=== PATIENT | male | born 1940 | race Caucasian/White ===

== ENCOUNTER 2016-10-03 10:07 | Inpatient (IN) | payer MEDICARE, MEDICAID ==
[~2016-10-03] VITALS: Ht 182.9 cm; Wt 108.8 kg
[2016-10-03] VITALS (16 sets, daily range): BP systolic 101–191; BP diastolic 55–106; PULSE 68–154; RESP 16–60; TEMP 97.7–98.8; O2SAT 94–100
[2016-10-03] MEDS ORDERED: LORazepam 2 MG/ML VIAL ONE (10:24)
[2016-10-03] MEDS ORDERED: RESP: ALBUTEROL 2.5 MG/IPRATROPIUM 0.5 MG NEB (SCH) ONE (10:27)
[2016-10-03] MEDS ORDERED: LORazepam 2 MG/ML VIAL IV PUSH ONE ×2 (10:30)
[2016-10-03] MEDS: RESP: ALBUTEROL 2.5 MG/IPRATROPIUM 0.5 MG NEB (SCH) INH ×5 (10:30→20:24)
[2016-10-03] MEDS ORDERED: methylPREDNISolone SOD SUCC 125 MG/2 ML VIAL IVP ONE (10:30)
[2016-10-03] MEDS: MAGNESIUM SULFATE 1 GM PREMIX 100 ML IV SCH ×2 (10:34→10:57)
--- NOTE | 2016-10-03 10:35 | RADRPT ---
EXAM DATE/TIME: 10/03/2016 10:27 [facility] COMPARISON: No previous studies available for comparison. INDICATIONS : Shortness of breath. MEDICAL HISTORY : None. SURGICAL HISTORY : None. ENCOUNTER: Initial ACUITY: 1 day PAIN SCORE: Non-responsive. LOCATION: Bilateral chest FINDINGS: 2 AP views of the chest demonstrate a normal-sized cardiac silhouette. There is mild lucency in the u pper lung zones bilaterally. No effusion, consolidation, or pneumothorax is appreciated. Bones and so ft tissues demonstrate no acute finding. CONCLUSION: Background lung changes are suggestive of emphysema. Otherwise, no acute cardiopulmonary abnormality is identified. Sriram Alex MD on October 03, 2016 at 10:33 Board Certified Radiologist. This report was verified electronically.
[2016-10-03] MEDS ORDERED: ETOMIDATE 20 MG/10 ML VIAL ONE (10:42)
[2016-10-03] MEDS ORDERED: SUCCINYLCHOLINE CHLORIDE 200 MG/10 ML VIAL ONE (10:42)
[2016-10-03] MEDS ORDERED: PROPOFOL 1000 MG/100 ML INJ 100 ML ONE (10:42)
[2016-10-03 10:48] LABS: BASOPHIL % 0.6 % (0.0-2.0); EOSINOPHIL # 0.1 TH/MM3 (0-0.4); EOSINOPHIL % 2.2 % (0.0-4.0); HEMATOCRIT 47.5 % (39.0-51.0); HEMO FLAGS DIFF FINAL; LYMPH % 37.1 % (9.0-44.0); LYMPHOCYTE # 1.8 TH/MM3 (1.0-4.8); MEAN CELL VOLUME 92.4 FL (80.0-100.0); MEAN CORPUSCULAR HEMOGLOBIN 31.4 PG (27.0-34.0); MONO % 0.7 % (0.0-8.0); NEUT % 59.4 % (16.0-70.0); PLATELET COUNT 226 TH/MM3 (150-450); RED BLOOD COUNT 5.14 MIL/MM3 (4.50-5.90); RED CELL DISTRIBUTION WIDTH 13.9 % (11.6-17.2)
[2016-10-03 10:58] LABS: APTT (PATIENT) 23.6 SEC (24.3-30.1); PROTHROMBIN TIME - PATIENT 10.7 SEC (9.8-11.6)
[2016-10-03 11:10] LABS: ANION GAP 17 MEQ/L (5-15); AST (GOT) 20 U/L (15-37); BICARBONATE 18.7 MEQ/L (21.0-32.0); BLOOD UREA NITROGEN 15 MG/DL (7-18); CHLORIDE 106 MEQ/L (98-107); GLOMERULAR FILTRATION RATE 53 ML/MIN (>89); MAGNESIUM 2.2 MG/DL (1.5-2.5); POTASSIUM 3.6 MEQ/L (3.5-5.1); SODIUM (NA) 142 MEQ/L (136-145)
[2016-10-03] MEDS: PROPOFOL 1000 MG/100 ML INJ 100 ML IV SCH ×4 (11:10→20:21)
[2016-10-03 11:15] LABS: ALKALINE PHOSPHATASE 103 U/L (45-117); ALT (GPT) 28 U/L (12-78); TOTAL BILIRUBIN ADULT 0.9 MG/DL (0.2-1.0)
[2016-10-03] MEDS ORDERED: ETOMIDATE 20 MG/10 ML VIAL IVP ONE (11:15)
[2016-10-03] MEDS ORDERED: SUCCINYLCHOLINE CHLORIDE 200 MG/10 ML VIAL IVP ONE (11:15)
[2016-10-03] MEDS ORDERED: SODIUM CHLOR 0.9% 1000 ML INJ 1,000 ML IV ONE ×2 (11:15)
--- NOTE | 2016-10-03 11:23 | RADRPT ---
EXAM DATE/TIME: 10/03/2016 11:15 [facility] COMPARISON: CHEST SINGLE AP, October 03, 2016, 10:27. INDICATIONS : Status post intubation. MEDICAL HISTORY : None. SURGICAL HISTORY : None. ENCOUNTER: Subsequent ACUITY: 1 day PAIN SCORE: Non-responsive. LOCATION: chest FINDINGS: Single AP view of the chest does not fully visualized the lung bases. Endotracheal tube is now presen t in the distal tip is approximately 9.2 cm from the zheng. There may be a nasogastric tube also pre sent but distal aspect is not visualized. No pneumothorax is identified. There is suspected atelectas is versus consolidation at the partially visualized lung bases. CONCLUSION: 1. Endotracheal tube tip measures approximately 9.2 cm from the zheng. 2. The lung bases are not fully visualized but there is questionable atelectasis versus consolidation . Sriram Alex MD on October 03, 2016 at 11:20 Board Certified Radiologist. This report was verified electronically.
[2016-10-03 11:27] LABS: BLOOD GAS CARBOXYHEMOGLOBIN 1.8 % (0-4); BLOOD GAS HCO3 19 mmol/L (22-26); BLOOD GAS METHEMOGLOBIN 2.3 % (0-2); BLOOD GAS O2 HGB SATURATION 96 % (90-100); BLOOD GAS OXYGEN CONTENT 18.9 Vol % (12.0-20.0); BLOOD GAS PCO2 36 mmHg (38-42); BLOOD GAS PO2 344 mmHG (61-120); BLOOD GAS TOTAL HGB 13.5 G/DL (12.0-16.0); CRITICAL VALUE NO; FIO2 100 %; OXYGEN DEVICE VENTILATOR; TEMP CORR TO 98.6; VENT SETTINGS AC/16/500/+5
[2016-10-03 11:28] LABS: DRAW SITE RT RADIAL; NUMBER OF ARTERIAL PUNCTURES 1; STAT NO; ULNAR PULSE PRESENT
[2016-10-03 11:29] LABS: BLOOD GAS BASE EXCESS -11.1 mmol/L (-2-2); BLOOD GAS CARBOXYHEMOGLOBIN 1.6 % (0-4); BLOOD GAS HCO3 14 mmol/L (22-26); BLOOD GAS METHEMOGLOBIN 2.2 % (0-2); BLOOD GAS O2 HGB SATURATION 95 % (90-100); BLOOD GAS OXYGEN CONTENT 22.4 Vol % (12.0-20.0); BLOOD GAS PCO2 31 mmHg (38-42); BLOOD GAS PO2 183 mmHG (61-120); BLOOD GAS TOTAL HGB 16.6 G/DL (12.0-16.0); CRITICAL VALUE YES; DRAW SITE RT RADIAL; FIO2 60 %; NUMBER OF ARTERIAL PUNCTURES 1; OXYGEN DEVICE BiPAP; STAT YES; TEMP CORR TO 98.6; ULNAR PULSE PRESENT; VENT SETTINGS 8PS/5PEEP
--- NOTE | 2016-10-03 11:58 | PD ---
HPI Chief Complaint: Respiratory Distress Time Seen by Provider: 10:13 Travel History International Travel<30 days: No Contact w/Intl Traveler<30days: No Traveled to known affect area: No History of Present Illness HPI This is a 76-year-old man who presents to the emergency department brought in by his roommate for the abrupt onset of severe trouble breathing starting just 30 minutes prior to arrival. Patient has a history of COPD. He otherwise had been feeling generally well and healthy. Both he and his roommate deny any recent prodrome of URI symptoms. He uses inhalers for COPD. No home oxygen. No history of heart problems. No other complaints. History is somewhat limited due to patient's for found shortness of breath. History Past Medical History Narrative Medical COPD Hypertension Tetanus Vaccination: > 5 Years Influenza Vaccination: No Past Surgical History Surgical History: No Previous Surgery Social History Alcohol Use: No Tobacco Use: No Allergies-Medications (Allergen,Severity, Reaction): Coded Allergies: No Known Allergies (Verified , 10/03/16) Reported Meds & Prescriptions Reported Meds & Active Scripts Active Active Prescriptions or Reported Medications Unobtainable Review of Systems Except as stated in HPI: all other systems reviewed are Neg Physical Exam Narrative GENERAL: Well-appearing 76-year-old man, marked respiratory distress. Able to speak in short sentences. Marked tachypnea. SKIN: Warm and dry. NECK: Trachea midline. No JVD. CARDIOVASCULAR: Regular rate and rhythm. No murmur appreciated. RESPIRATORY: Marked tachypnea, diminished breath sounds with barely audible air movement throughout the posterior lung howard. No Rales. Some very tight wheezing. No rhonchi. GASTROINTESTINAL: Abdomen soft, non-tender, nondistended. Hepatic and splenic margins not palpable. MUSCULOSKELETAL: No obvious deformities. No edema. NEUROLOGICAL: Awake and alert. No obvious cranial nerve deficits. Motor grossly within normal limits. Normal speech. PSYCHIATRIC: Appropriate mood and affect; insight and judgment normal. Data Data Last Documented VS Vital Signs Date Time Temp Pulse Resp B/P Pulse Ox O2 Delivery O2 Flow Rate FiO2 10/03/16 11:15 100 100 10/03/16 10:59 122 50 179/82 Ventilator 10/03/16 10:10 97.7 Orders Chest, Single Ap (10/03/16 ) Electrocardiogram (10/03/16 10:19) Complete Blood Count With Diff (10/03/16 10:19) Comprehensive Metabolic Panel (10/03/16 10:19) Prothrombin Time / Inr (Pt) (10/03/16 10:19) Act Partial Throm Time (Ptt) (10/03/16 10:19) Lactic Acid Sepsis Protocol (10/03/16 10:19) Magnesium (Mg) (10/03/16 10:19) Lipase (10/03/16 10:19) Troponin I (10/03/16 10:19) Urinalysis - C+S If Indicated (10/03/16 10:19) Influenzae A/B Antigen (10/03/16 10:19) Blood Culture (10/03/16 10:19) Arterial Blood Gas (Abg) (10/03/16 10:19) Blood Glucose (10/03/16 10:19) Ecg Monitoring (10/03/16 10:19) Iv Access Insert/Monitor (10/03/16 10:19) Oximetry (10/03/16 10:19) Oxygen Administration (10/03/16 10:19) Resp Bipap / Cpap Non Invas Vt (10/03/16 ) Lorazepam Inj (Ativan Inj) (10/03/16 10:30) Lorazepam Inj (Ativan Inj) (10/03/16 10:24) Methylprednisolone So Succ Inj (Solumedr (10/03/16 10:30) Albuterol-Ipratropium Neb (Duoneb Neb) (10/03/16 10:30) Magnesium Sulfate 1 Gm Premix (Magnesium (10/03/16 10:30) Albuterol-Ipratropium Neb (Duoneb Neb) (10/03/16 10:27) Lorazepam Inj (Ativan Inj) (10/03/16 10:30) Propofol 1000 Mg/100 Ml Inj (Diprivan 10 (10/03/16 10:42) Etomidate Inj (Amidate Inj) (10/03/16 10:42) Succinylcholine Inj (Quelicin Inj) (10/03/16 10:42) Chest, Single Ap (10/03/16 11:03) Arterial Blood Gas (Abg) (10/03/16 11:03) Ng Gastric Tube Insert/Monitor (10/03/16 11:03) Urinary Catheter Insert/Apply (10/03/16 11:03) Etomidate Inj (Amidate Inj) (10/03/16 11:15) Succinylcholine Inj (Quelicin Inj) (10/03/16 11:15) Sodium Chloride 0.9% Flush (Ns Flush) (10/03/16 11:15) Restraints Non-Violent ADRIAN.Q3H (10/03/16 11:03) Propofol 1000 Mg/100 Ml Inj (Diprivan 10 (10/03/16 11:15) ^ Infusion (10/03/16 11:03) RASS (10/03/16 11:03) Neurological Rass Scale ADRIAN.Q2H (10/03/16 11:03) Sodium Chlor 0.9% 1000 Ml Inj (Ns 1000 M (10/03/16 11:15) Sodium Chlor 0.9% 1000 Ml Inj (Ns 1000 M (10/03/16 11:15) Ct Pulmonary Angiogram (10/03/16 ) Vancomycin Inj (Vancomycin Inj) (10/03/16 12:00) Cefepime Inj (Maxipime Inj) (10/03/16 12:00) Ct Abd/Pel W Iv Contrast(Rout) (10/03/16 ) Admit Order (Ed Use Only) (10/03/16 ) Labs Laboratory Tests Test 10/03/16 10/03/16 10/03/16 10/03/16 10:25 10:29 11:18 12:10 White Blood Count 5.0 TH/MM3 Red Blood Count 5.14 MIL/MM3 Hemoglobin 16.1 GM/DL Hematocrit 47.5 % Mean Corpuscular Volume 92.4 FL Mean Corpuscular Hemoglobin 31.4 PG Mean Corpuscular Hemoglobin 34.0 % Concent Red Cell Distribution Width 13.9 % Platelet Count 226 TH/MM3 Mean Platelet Volume 7.5 FL Neutrophils (%) (Auto) 59.4 % Lymphocytes (%) (Auto) 37.1 % Monocytes (%) (Auto) 0.7 % Eosinophils (%) (Auto) 2.2 % Basophils (%) (Auto) 0.6 % Neutrophils # (Auto) 3.0 TH/MM3 Lymphocytes # (Auto) 1.8 TH/MM3 Monocytes # (Auto) 0.0 TH/MM3 Eosinophils # (Auto) 0.1 TH/MM3 Basophils # (Auto) 0.0 TH/MM3 CBC Comment DIFF FINAL Differential Comment Prothrombin Time 10.7 SEC Prothromb Time International 1.0 RATIO Ratio Activated Partial 23.6 SEC Thromboplast Time Sodium Level 142 MEQ/L Potassium Level 3.6 MEQ/L Chloride Level 106 MEQ/L Carbon Dioxide Level 18.7 MEQ/L Anion Gap 17 MEQ/L Blood Urea Nitrogen 15 MG/DL Creatinine 1.32 MG/DL Estimat Glomerular Filtration 53 ML/MIN Rate Random Glucose 155 MG/DL Lactic Acid Level 13.5 mmol/L 2.7 mmol/L Calcium Level 9.2 MG/DL Magnesium Level 2.2 MG/DL Total Bilirubin 0.9 MG/DL Aspartate Amino Transf 20 U/L (AST/SGOT) Alanine Aminotransferase 28 U/L (ALT/SGPT) Alkaline Phosphatase 103 U/L Troponin I LESS THAN 0.02 NG/ML Total Protein 8.2 GM/DL Albumin 4.2 GM/DL Lipase 151 U/L Blood Gas Puncture Site RT RADIAL RT RADIAL Blood Gas Patient Temperature 98.6 98.6 Blood Gas HCO3 14 mmol/L 19 mmol/L Blood Gas Base Excess -11.1 mmol/L -6.0 mmol/L Blood Gas Oxygen Saturation 95 % 96 % Arterial Blood pH 7.29 7.34 Arterial Blood Partial 31 mmHg 36 mmHg Pressure CO2 Arterial Blood Partial 183 mmHG 344 mmHG Pressure O2 Arterial Blood Oxygen Content 22.4 Vol % 18.9 Vol % Arterial Blood 1.6 % 1.8 % Carboxyhemoglobin Arterial Blood Methemoglobin 2.2 % 2.3 % Blood Gas Hemoglobin 16.6 G/DL 13.5 G/DL Oxygen Delivery Device BiPAP VENTILATOR Blood Gas Ventilator Setting 8PS/5PEEP AC/16/500/+5 Blood Gas Inspired Oxygen 60 % 100 % [facility] Medical Decision Making Medical Screen Exam Complete: Yes Emergency Medical Condition: Yes Interpretation(s) My review of EKG: Sinus tachycardia rate of 111, normal axis, normal intervals, lateral ST depression suggest lateral ischemia. LABS: CBC is unremarkable. CMP remarkable for mildly elevated creatinine. Anion gap 17. Bicarbonate 18.7 Lactate 13.5 Troponin negative Lipase normal Coags unremarkable Initial ABG on BiPAP 7.29/31/183/14, base excess -11 Repeat ABG postintubation 7.34/36/344/19, base excess -6 Chest x-ray: COPD changes. No infiltrate or pulmonary edema. Repeat chest x- ray after intubation shows ET tube was 9.2 cm from the zheng. Advanced [address] pulmonary angiogram: No PE. Severe emphysema. CT abdomen and pelvis: No acute finding is identified. Differential Diagnosis COPD exacerbation, pulmonary edema, A. fib, sepsis, respiratory failure, other Narrative Course Medical decision making This 76-year-old male presents emergency department in marked respiratory distress. He was immediately placed on BiPAP. Labs are drawn and chest x-ray was obtained. Chest x-ray did not show any pneumothorax or/pulmonary edema. He was extremely tight. At this point consideration for really COPD exacerbation, severe sepsis of the symptoms are very abrupt in onset, or PE. ABG was performed which showed metabolic acidosis. I think this is likely due to his marked work of breathing. Patient was still breathing 30-40 times a minute, with marked increase in work of breathing despite BiPAP. Decision was made to intubate patient which was accomplished uneventfully. He was much more comfortable afterwards. Vital signs started to normalize. Repeat ABG is improved. This is likely severe COPD exacerbation. Awaiting CT to rule out PE. Given the acidosis tachypnea tachycardia ball empirically cover with antibiotics pending further workup. Critical Care Narrative Aggregate critical care time was 40 minutes. Time to perform other separately billable procedures was not included in the critical care time. My time did not include minutes spent treating any other patients simultaneously or on activities that did not directly contribute to the patient's treatment. The services I provided to this patient were to treat and/or prevent clinically significant deterioration that could result in: , respiratory failure, decompensation, increased morbidity. I provided critical care services requiring my management, as noted below: Chart data review, documentation time, medication orders and management, vital sign assessments/reviewing monitor data, ordering and reviewing lab tests, ordering and interpreting/reviewing x-rays and diagnostic studies, care of the patient and discussion of the patient with the admitting physicians. Procedures Procedure Narrative After the risks and benefits were discussed the following procedure was performed: INTUBATION: The patient was put in optimal position for the procedure. Rapid sequence intubation was initiated by me using 20 milligrams of etomidate IV and 100 milligrams of succinylcholine IV. The patient was intubated with a 8.0 cuffed endotracheal tube. Tube placement was confirmed by visualization of the tube and balloon passing through the cords, capnometry and subsequent chest x- ray. Breath sounds were equal and well aerated bilaterally postintubation. No breath sounds over stomach. Patient tolerated procedure well. Diagnosis Primary Impression: Acute respiratory failure with hypoxia Additional Impression: Shock Scripts Unable to Obtain Active Prescriptions or Reported Meds Lenard Wood MD Oct 03, 2016 11:58
[2016-10-03] MEDS ORDERED: VANCOMYCIN INJ 1,000 MG in SODIUM CHLOR 0.9% 250 ML INJ 250 ML IV ONE (12:00)
[2016-10-03] MEDS ORDERED: CEFEPIME INJ 2,000 MG in SODIUM CHLORIDE 0.9% INJ 100 ML IV ONE (12:00)
[2016-10-03 12:40] LABS: LACTIC ACID GHOST NOT REPORTABLE
[2016-10-03] MEDS ORDERED: GLUCAGON 1 MG/ML VIAL OTHER PRN (12:45)
[2016-10-03] MEDS ORDERED: DEXTROSE 50% IN WATER 50 ML VIAL(D50) IV PUSH PRN (12:45)
[2016-10-03] MEDS ORDERED: CHLORHEXIDINE GLUCONATE 2 % 1 PACK (2 CLOTHS) TOP PRN (12:45)
[2016-10-03] MEDS: INSULIN NovoLIN REGULAR SUPPLEMENTAL SCALE SQ SCH ×2 (12:45→18:49)
[2016-10-03] MEDS ORDERED: MISCELLANEOUS NURSING INFORMATION XX SCH (12:45)
[2016-10-03] MEDS ORDERED: RESP: ALBUTEROL 2.5 MG/3 ML NEB (PRN) INH (12:45)
[2016-10-03 13:01] LABS: BACTERIA, URINE OCC /hpf; BLOOD, URINE NEG (NEG); GLUCOSE,URINE NEG (NEG); KETONE, URINE NEG (NEG); MUCUS URINE FEW /lpf (OCC); NITRITE,URINE POS (NEG); PH, URINE 5.5 (5.0-8.5); URINE COLOR YELLOW (YELLW/STRAW)
[2016-10-03 13:02] LABS: COMMENT (UR) CATH-CULTURE IND; CULTURE IF INDICATED CATH CULTURE IND
[2016-10-03] MEDS ORDERED: IOHEXOL 350 MG/ML 10 ML VIAL (for RAD DIAG) IV ONE (13:35)
--- NOTE | 2016-10-03 13:44 | RADRPT ---
EXAM DATE/TIME: 10/03/2016 13:18 [facility] COMPARISON: CHEST SINGLE AP, October 03, 2016, 11:15. INDICATIONS : Shortness of breath. IV CONTRAST: 75 cc Omnipaque 350 (iohexol) IV ; Cumulative dose for multiple exams. RADIATION DOSE: 11.29 CTDIvol (mGy) ; Combined studies - Thorax/Abdomen/Pelvis MEDICAL HISTORY : Chronic obstructive pulmonary disease. SURGICAL HISTORY : None. ENCOUNTER: Initial ACUITY: 1 day PAIN SCALE: 2/10 LOCATION: Bilateral chest TECHNIQUE: Volumetric scanning of the chest was performed using a pulmonary embolism protocol MIP images were re constructed. Using automated exposure control and adjustment of the mA and/or kV according to patien t size, radiation dose was kept as low as reasonably achievable to obtain optimal diagnostic quality images. FINDINGS: PULMONARY ARTERIES: No filling defects are seen in the pulmonary arteries through the segmental level. LUNGS: There is no consolidation or pneumothorax . Dependent atelectasis is present bilaterally. There is se johnny emphysema with large bulla at the right lung apex. PLEURAE: There is no pleural thickening or pleural effusion. MEDIASTINUM: Heart and great vessels demonstrate no acute finding. There is coronary artery calcification and mode rate atherosclerotic disease of the aorta. There is a lymph node in the right hilar region measuring 16 mm. MUSCULOSKELETAL: There is degenerative changes of the thoracic spine. MISCELLANEOUS: The visualized upper abdominal organs demonstrate no acute abnormality. Nasogastric tube extends into the stomach. Distal tip is not visualized. Endotracheal tube is present. CONCLUSION: 1. No PE is identified. 2. Severe emphysema with dependent atelectasis bilaterally. 3. There is a single mildly enlarged lymph node in the right infrahilar region measuring 16 mm. Sriram Alex MD on October 03, 2016 at 13:38 Board Certified Radiologist. This report was verified electronically.
--- NOTE | 2016-10-03 13:48 | RADRPT ---
EXAM DATE/TIME: 10/03/2016 13:18 [facility] COMPARISON: No previous studies available for comparison. INDICATIONS : Abdomen pain. IV CONTRAST: 75 cc Omnipaque 350 (iohexol) IV ; Cumulative dose for multiple exams. ORAL CONTRAST: No oral contrast ingested. RADIATION DOSE: 11.29 CTDIvol (mGy) ; Combined studies - Thorax/Abdomen/Pelvis MEDICAL HISTORY : Chronic obstructive pulmonary disease. SURGICAL HISTORY : None. ENCOUNTER: Initial ACUITY: 1 day PAIN SCALE: 4/10 LOCATION: Bilateral abdomen. TECHNIQUE: Volumetric scanning of the abdomen and pelvis was performed. Using automated exposure control and ad justment of the mA and/or kV according to patient size, radiation dose was kept as low as reasonably achievable to obtain optimal diagnostic quality images. FINDINGS: LOWER LUNGS: Please refer to chest CT report for description of the supradiaphragmatic findings. LIVER: Heterogeneous enhancement in the right lobe without a lesion seen. There is a calcified stone in the gallbladder neck. No gallbladder wall thickening or inflammation is appreciated. There is no dilatio n of the biliary tree. SPLEEN: Normal size without lesion. PANCREAS: Within normal limits. KIDNEYS: Normal in size and shape. There is no mass, stone or hydronephrosis. There are 3 low density lesions in the right kidney ranging in size from 9 mm up to 4.3 cm. There are 2 low density lesions in the l eft kidney ranging in size from 1.5 cm and 2.6 cm. All of these lesions have density measurements ezequiel racteristic of simple cysts. ADRENAL GLANDS: Within normal limits. VASCULAR: There is no aortic aneurysm. There is severe atherosclerotic disease. BOWEL/MESENTERY: The stomach, small bowel, and colon demonstrate no acute abnormality. There is no free intraperitone al air or fluid. ABDOMINAL WALL: Within normal limits. RETROPERITONEUM: There is no lymphadenopathy. BLADDER: Page catheter is present within the urinary bladder. REPRODUCTIVE: Within normal limits. INGUINAL: There is no lymphadenopathy or hernia. MUSCULOSKELETAL: There are degenerative changes of the lumbar spine and there has been prior laminectomy. CONCLUSION: 1. No acute finding is identified within the abdomen or pelvis. 2. Nonacute findings include cholelithiasis, bilateral renal cysts, and severe atherosclerotic diseas e. Sriram Alex MD on October 03, 2016 at 13:42 Board Certified Radiologist. This report was verified electronically.
--- NOTE | 2016-10-03 14:02 | MH ---
cc: MARTI LAND M.D. DATE OF ADMISSION: 10/03/2016 ADMITTING DIAGNOSIS: HISTORY OF PRESENT ILLNESS: The patient is a 76-year-old male with past medical history of chronic obstructive pulmonary lung disease and hypertension who was brought into the [facility] Emergency Department by his roommate for acute onset of shortness of breath that started 30 minutes prior to arrival. Both he and his roommate deny any recent upper respiratory infections. On arrival to the emergency department, he was tachycardiac, tachypneic and hypertensive. The patient was subsequently placed on BiPAP 8/5 with 60% FIO2 and an ABG was performed which showed pH of 7.29, CO2 of 31, pAO2 183, bicarb 14, saturation 95%. Due to worsening respiratory status, he was subsequently intubated with etomidate and succinylcholine and place and placed on full mechanical ventilation. Repeat ABG post intubation showed a pH of 7.34, CO2 36, pAO2 344, bicarb 19, saturation 96%. He was placed on Diprivan infusion for sedation. His laboratory data was significant for lactic acidemia with lactic acid level of 13.5. Chest x-ray post intubation showed ET tube above the zheng, questionable atelectasis versus consolidation at the lung bases. In the ER the patient received 2 liters of crystalloids, Vancomycin and was scheduled to receive cefepime. He also received Solu-Medrol 125 milligrams IV push and bronchodilator treatment. The patient is scheduled to undergo CT angiogram of the chest to rule out PE. PAST MEDICAL HISTORY: Past medical history significant for: 1. COPD. 2. Hypertension. PAST SURGICAL HISTORY: Unremarkable. SOCIAL HISTORY: Nonsmoker, nondrinker. Lives with his roommate. ALLERGIES NO KNOWN DRUG ALLERGIES. MEDICATIONS: Reported medications unknown at the present time. FAMILY HISTORY: Noncontributory. REVIEW OF SYSTEMS: As per HPI. Rest of the system unobtainable. PHYSICAL EXAMINATION: GENERAL: A 76-year-old male intubated for acute hypoxemic respiratory failure. VITAL SIGNS: Afebrile, pulse of 100, blood pressure 179/83, saturation 99%. VENT SETTINGS: Assist control rate of 16, tidal volume 500, PEEP of 5, FIO2 60%. HEAD, EYES, EARS, NOSE, THROAT: Normocephalic and atraumatic. Pupils equal, round and reactive to light and accommodation. Extraocular muscles intact. Conjunctivae are pink. Nonicteric sclerae. Oral mucosa within normal limits. NECK: The neck is supple. No jugular venous distention, adenopathy or thyromegaly. Trachea in the midline. CARDIOVASCULAR: Tachycardic. Normal S1 and S2. No murmurs, rubs or gallops noted. PULMONARY: Bilateral equal air entry, diminished, no crackles. ABDOMEN: The abdomen is soft, nontender and no distention. Positive bowel sounds. EXTREMITIES: No cyanosis, clubbing or edema. NEUROLOGIC: Intubated and sedated with Diprivan. LABORATORY DATA: Sodium 142, potassium 3.6, chloride 106, CO2 18.7, BUN of 15, creatinine 1.32, glucose of 155, lactic acid level 13.5. Troponin less than 0.02. Liver function tests within normal. WBCs 5, hemoglobin 16, hematocrit 47, platelet count 226,000. INR 1.0, PT 10.7, PTT 23.6. Urinalysis showed moderate leukocyte esterase, 11 WBCs, occasional bacteria. RADIOGRAPHY: Chest x-ray Showed ET tube above the zheng and questionable atelectasis versus consolidation at the bases of the lungs. EKGS: EKG shows sinus tachycardia with heart rate of 111 beats per minute. IMPRESSION: 1. Acute hypoxemic respiratory failure. 2. COPD exacerbation. 3. Lactic acid acidemia likely secondary to respiratory failure. 4. Urinary tract infection. 5. Hypertension. 6. Mild acute kidney injury. 7. Hyperglycemia secondary to a critical illness. RECOMMENDATIONS: 1. Continue with Diprivan infusion for sedation and daily sedation vacation when appropriate. 2. Monitor neuro status closely. 3. Continue with vent support and maintain sats above 92%. 4. Bronchodilators in the form of DuoNeb q. 6 and will initiate ICU vent bundle. Decrease FIO2 to 40% as tolerated. 5. Continue with IV steroids in the form of Solu-Medrol 40 mg IV q. 8. 6. The patient is for CTA of the chest to rule out pulmonary malaise. 7. Place on Cardizem 60 milligrams four times a day for blood pressure and rate control. 8. Monitor heart rate and blood pressure closely. 9. Serial lactic acid monitoring. 10. The patient received a 2 liters of crystalloids in the emergency department. Will continue with maintenance fluids normal saline at 75 mL/hour. 11. Monitor renal function, intake and output and electrolyte replacement per protocol. 12. Continue with IV fluids as stated above. 13. Keep n.p.o. for now and place on Protonix 40 mg IV daily. 14. Will initiate nutritional support within the next 24 hours if the patient remains intubated. 15. Continue broad-spectrum antibiotics in the form of Zosyn. Of note the patient received vancomycin and cefepime in the emergency department. 16. Monitor for signs of infection, which include fever and WBCs. 17. Follow up on blood and urine cultures and in addition will obtain a sputum culture with gram stain. 18. Sliding scale insulin with Accu-Chek q. 6-hour for glycemic control. 19. Monitor CBC. 20. GI prophylaxis with Protonix 40 mg daily and DVT prophylaxis with SCDs and Lovenox 40 mg subcu daily. Further recommendations will be based on the hospital course. CRITICAL CARE TIME: Critical care time 40 minutes excluding procedures. MD THERESA Martell/MARY /1:04 PM /1:16 PM
[2016-10-03] MEDS: DILTIAZEM HCL 60 MG TAB PO SCH ×3 (14:03→20:20)
[2016-10-03] MEDS: ENOXAPARIN SODIUM 40 MG/0.4 ML SYRINGE SQ SCH (14:03)
[2016-10-03] MEDS: PANTOPRAZOLE SODIUM 40 MG VIAL IV SCH (14:03)
[2016-10-03] MEDS: SODIUM CHLOR 0.9% 1000 ML INJ 1,000 ML IV SCH (14:04)
[2016-10-03] MEDS: methylPREDNISolone SOD SUCC 40 MG/1 ML VIAL IV PUSH SCH ×2 (14:22→22:12)
[2016-10-03] MEDS: PIPERACIL-TAZO 3.375 GM PREMIX 50 ML IV SCH ×2 (14:23→20:20)
--- NOTE | 2016-10-03 18:52 | EKG ---
Date Performed: 10/03/2016 Time Performed: 10:35:46 PTAGE: 76 years EKG: SUPRAVENTRICULAR TACHYCARDIA NONSPECIFIC ST & T-WAVE ABNORMALITY Sourse of rhythm indetermi anitha due to 50 percent baseline Wandering artifact. ABNORMAL RHYTHM ECG PREVIOUS TRACING : 12/07/2004 19.51 DOCTOR: Adam Richter Interpretating Date/Time 10/03/2016 18:51:36
[2016-10-04] VITALS (17 sets, daily range): BP systolic 104–133; BP diastolic 59–69; PULSE 67–82; RESP 8–26; TEMP 97.9–98.7; O2SAT 93–97
[2016-10-04] MEDS: RESP: ALBUTEROL 2.5 MG/IPRATROPIUM 0.5 MG NEB (SCH) INH ×6 (00:38→20:44)
[2016-10-04] MEDS: INSULIN NovoLIN REGULAR SUPPLEMENTAL SCALE SQ SCH ×4 (00:45→18:19)
[2016-10-04] MEDS: SODIUM CHLOR 0.9% 1000 ML INJ 1,000 ML IV SCH ×2 (02:20→17:18)
[2016-10-04] MEDS: PIPERACIL-TAZO 3.375 GM PREMIX 50 ML IV SCH ×4 (02:20→20:45)
[2016-10-04] MEDS: CHLORHEXIDINE GLUCONATE 2 % 1 PACK (2 CLOTHS) TOP SCH (02:21)
[2016-10-04] MEDS: PROPOFOL 1000 MG/100 ML INJ 100 ML IV SCH ×2 (03:23→08:35)
[2016-10-04 05:57] LABS: AUTOMATED NEUTROPHIL # 16.1 TH/MM3 (1.8-7.7); BASOPHIL % 0.2 % (0.0-2.0); HEMATOCRIT 36.3 % (39.0-51.0); HEMO FLAGS DIFF FINAL; LYMPH % 2.9 % (9.0-44.0); LYMPHOCYTE # 0.5 TH/MM3 (1.0-4.8); MEAN CELL VOLUME 89.7 FL (80.0-100.0); MEAN CORPUSCULAR HEMOGLOBIN 31.6 PG (27.0-34.0); MEAN CORPUSCULAR HGB CONC 35.2 % (32.0-36.0); MONO % 2.4 % (0.0-8.0); NEUT % 94.5 % (16.0-70.0); PLATELET COUNT 148 TH/MM3 (150-450); RED BLOOD COUNT 4.05 MIL/MM3 (4.50-5.90); RED CELL DISTRIBUTION WIDTH 14.3 % (11.6-17.2)
[2016-10-04] MEDS: methylPREDNISolone SOD SUCC 40 MG/1 ML VIAL IV PUSH SCH ×3 (06:09→20:44)
[2016-10-04 06:20] LABS: BICARBONATE 22.2 MEQ/L (21.0-32.0); MAGNESIUM 2.6 MG/DL (1.5-2.5); POTASSIUM 3.9 MEQ/L (3.5-5.1)
[2016-10-04] MEDS: PANTOPRAZOLE SODIUM 40 MG VIAL IV SCH (08:03)
[2016-10-04] MEDS: DILTIAZEM HCL 60 MG TAB PO SCH ×4 (09:00→20:45)
--- NOTE | 2016-10-04 09:25 | HHI.CCPN ---
Subjective Remarks/Hospital Course The patient is a 76-year-old male with past medical history of COPD and hypertension who was brought into the [facility] Emergency Department by his roommate for acute onset of shortness of breath that started 30 minutes prior to arrival. Both he and his roommate deny any recent upper respiratory infections. On arrival to the emergency department, he was tachycardiac, tachypneic and hypertensive. The patient was subsequently placed on BiPAP 8/5 with 60% FIO2 and an ABG was performed which showed pH of 7.29, CO2 of 31, pAO2 183, bicarb 14, saturation 95%. Due to worsening respiratory status, he was subsequently intubated with etomidate and succinylcholine and place and placed on full mechanical ventilation. Repeat ABG post intubation showed a pH of 7.34, CO2 36, pAO2 344, bicarb 19, saturation 96%. He was placed on Diprivan infusion for sedation. His laboratory data was significant for lactic acidemia with lactic acid level of 13.5.Chest x-ray post intubation showed ET tube above the zheng, questionable atelectasis versus consolidation at the lung bases. In the ER the patient received 2 liters of crystalloids, Vancomycin and was scheduled to receive cefepime. He also received Solu-Medrol 125 milligrams IV push and bronchodilator treatment. The patient is scheduled to undergo CT angiogram of the chest to rule out PE. 10/04 Patient is sedated and intubated. Afebrile. Objective Vital Signs Date Time Temp Pulse Resp B/P Pulse Ox O2 Delivery O2 Flow Rate FiO2 10/04/16 08:26 94 40 10/04/16 08:00 67 10/04/16 04:00 97.9 26 108/59 10/03/16 16:02 Ventilator Intake and Output 10/03/16 10/03/16 10/04/16 08:00 16:00 00:00 Intake Total 1239 ml Output Total 975 ml Balance 264 ml Result Diagram: 10/04/16 0545 10/04/16 0545 Other Results Laboratory Tests Test 10/03/16 10/03/16 10/03/16 10/03/16 10:25 10:29 11:18 12:10 White Blood Count 5.0 TH/MM3 Red Blood Count 5.14 MIL/MM3 Hemoglobin 16.1 GM/DL Hematocrit 47.5 % Mean Corpuscular Volume 92.4 FL Mean Corpuscular Hemoglobin 31.4 PG Mean Corpuscular Hemoglobin 34.0 % Concent Red Cell Distribution Width 13.9 % Platelet Count 226 TH/MM3 Mean Platelet Volume 7.5 FL Neutrophils (%) (Auto) 59.4 % Lymphocytes (%) (Auto) 37.1 % Monocytes (%) (Auto) 0.7 % Eosinophils (%) (Auto) 2.2 % Basophils (%) (Auto) 0.6 % Neutrophils # (Auto) 3.0 TH/MM3 Lymphocytes # (Auto) 1.8 TH/MM3 Monocytes # (Auto) 0.0 TH/MM3 Eosinophils # (Auto) 0.1 TH/MM3 Basophils # (Auto) 0.0 TH/MM3 CBC Comment DIFF FINAL Differential Comment Prothrombin Time 10.7 SEC Prothromb Time International 1.0 RATIO Ratio Activated Partial 23.6 SEC Thromboplast Time Sodium Level 142 MEQ/L Potassium Level 3.6 MEQ/L Chloride Level 106 MEQ/L Carbon Dioxide Level 18.7 MEQ/L Anion Gap 17 MEQ/L Blood Urea Nitrogen 15 MG/DL Creatinine 1.32 MG/DL Estimat Glomerular Filtration 53 ML/MIN Rate Random Glucose 155 MG/DL Lactic Acid Level 13.5 mmol/L 2.7 mmol/L Calcium Level 9.2 MG/DL Magnesium Level 2.2 MG/DL Total Bilirubin 0.9 MG/DL Aspartate Amino Transf 20 U/L (AST/SGOT) Alanine Aminotransferase 28 U/L (ALT/SGPT) Alkaline Phosphatase 103 U/L Troponin I LESS THAN 0.02 NG/ML Total Protein 8.2 GM/DL Albumin 4.2 GM/DL Lipase 151 U/L Blood Gas Puncture Site RT RADIAL RT RADIAL Blood Gas Patient Temperature 98.6 98.6 Blood Gas HCO3 14 mmol/L 19 mmol/L Blood Gas Base Excess -11.1 mmol/L -6.0 mmol/L Blood Gas Oxygen Saturation 95 % 96 % Arterial Blood pH 7.29 7.34 Arterial Blood Partial 31 mmHg 36 mmHg Pressure CO2 Arterial Blood Partial 183 mmHG 344 mmHG Pressure O2 Arterial Blood Oxygen Content 22.4 Vol % 18.9 Vol % Arterial Blood 1.6 % 1.8 % Carboxyhemoglobin Arterial Blood Methemoglobin 2.2 % 2.3 % Blood Gas Hemoglobin 16.6 G/DL 13.5 G/DL Oxygen Delivery Device BiPAP VENTILATOR Blood Gas Ventilator Setting 8PS/5PEEP AC/16/500/+5 Blood Gas Inspired Oxygen 60 % 100 % Test 10/03/16 10/03/16 10/04/16 12:45 17:40 05:45 Urine Color YELLOW Urine Turbidity HAZY Urine pH 5.5 Urine Specific [place] 1.013 Urine Protein NEG mg/dL Urine Glucose (UA) NEG mg/dL Urine Ketones NEG mg/dL Urine Occult Blood NEG Urine Nitrite POS Urine Bilirubin NEG Urine Urobilinogen LESS THAN 2.0 MG/DL Urine Leukocyte Esterase MOD Urine RBC 1 /hpf Urine WBC 11 /hpf Urine Bacteria OCC /hpf Urine Mucus FEW /lpf Microscopic Urinalysis Comment CATH-CULTURE IND Nasal Screen MRSA (PCR) NEGATIVE White Blood Count 17.0 TH/MM3 Red Blood Count 4.05 MIL/MM3 Hemoglobin 12.8 GM/DL Hematocrit 36.3 % Mean Corpuscular Volume 89.7 FL Mean Corpuscular Hemoglobin 31.6 PG Mean Corpuscular Hemoglobin 35.2 % Concent Red Cell Distribution Width 14.3 % Platelet Count 148 TH/MM3 Mean Platelet Volume 7.8 FL Neutrophils (%) (Auto) 94.5 % Lymphocytes (%) (Auto) 2.9 % Monocytes (%) (Auto) 2.4 % Eosinophils (%) (Auto) 0.0 % Basophils (%) (Auto) 0.2 % Neutrophils # (Auto) 16.1 TH/MM3 Lymphocytes # (Auto) 0.5 TH/MM3 Monocytes # (Auto) 0.4 TH/MM3 Eosinophils # (Auto) 0.0 TH/MM3 Basophils # (Auto) 0.0 TH/MM3 CBC Comment DIFF FINAL Differential Comment Sodium Level 143 MEQ/L Potassium Level 3.9 MEQ/L Chloride Level 111 MEQ/L Carbon Dioxide Level 22.2 MEQ/L Anion Gap 10 MEQ/L Blood Urea Nitrogen 23 MG/DL Creatinine 1.21 MG/DL Estimat Glomerular Filtration 59 ML/MIN Rate Random Glucose 169 MG/DL Lactic Acid Level 2.6 mmol/L Calcium Level 7.6 MG/DL Phosphorus Level 2.9 MG/DL Magnesium Level 2.6 MG/DL Imaging Last Impressions Chest X-Ray 10/03/16 1103 Signed Impressions: Service Date/Time: Monday, October 03, 2016 11:15 - CONCLUSION: 1. Endotracheal tube tip measures approximately 9.2 cm from the zheng. 2. The lung bases are not fully visualized but there is questionable atelectasis versus consolidation. Sriram Alex MD CT Angiography 10/03/16 Signed Impressions: Service Date/Time: Monday, October 03, 2016 13:18 - CONCLUSION: 1. No PE is identified. 2. Severe emphysema with dependent atelectasis bilaterally. 3. There is a single mildly enlarged lymph node in the right infrahilar region measuring 16 mm. Sriram Alex MD Abdomen/Pelvis CT 10/03/16 Signed Impressions: Service Date/Time: Monday, October 03, 2016 13:18 - CONCLUSION: 1. No acute finding is identified within the abdomen or pelvis. 2. Nonacute findings include cholelithiasis, bilateral renal cysts, and severe atherosclerotic disease. Sriram Alex MD Objective Remarks GENERAL: Patient is 76 yo intubated and sedated SKIN: Warm and dry. HEAD: Normocephalic. EYES: No scleral icterus. No injection or drainage. NECK: Supple, trachea midline. No JVD or lymphadenopathy. CARDIOVASCULAR: Regular rate and rhythm without murmurs, gallops, or rubs. RESPIRATORY: Breath sounds equal bilaterally. No accessory muscle use. GASTROINTESTINAL: Abdomen soft, non-tender, nondistended. MUSCULOSKELETAL: No cyanosis, or edema. Neuro: Awake and alert. A/P Assessment and Plan 1. Acute hypoxemic respiratory failure. 2. COPD exacerbation. 3. Lactic acid acidemia..resolved 4. Urinary tract infection. 5. Hypertension. 6. Mild acute kidney injury. 7. Hyperglycemia secondary to a critical illness. 8 UTI-urine cx: GNR Plan: Neuro: On Diprivan infusion for sedation. Daily sedation vacation Monitor neuro status closely. Pulm: Continue with vent support and maintain sats > 92%. Bronchodilators, ICU vent bundle. Solu-Medrol 40 mg IV q. 8. Start SBT daily as tito and possible extubation if tito CTA chest negative for PE. Pulm eval will need evaluation for home oxygen prior to discharge, PFT as outpatient to asses severity of his obstructive lung disease. CV: On Cardizem 60 mg QID. Monitor HR and BP keep MAP>65mmHg Lactic acid 2.6 this morning from 13.5 on qrrival. : Monitor renal function, intake and output and electrolyte replacement per protocol. On NS@75ml/hr GI: On Protonix 40 mg IV daily. Start TF today if remains intubated. ID: Continue abx (Zosyn) patient received vancomycin and cefepime in ED Monitor for signs of infections(ever and WBC) Follow up on cxs 3/4 Urine cx: GNR Endo: SSI with Accu-Chek q. 6-hour for glycemic control. Heme: Monitor CBC. GI prophylaxis with Protonix 40 mg daily and DVT prophylaxis with SCDs and Lovenox 40 mg subcu daily. Addendum: Patient is extubated on 4L oxygen with good sats. Will sign off and transfer care to [facility]. Level 3 Park Robertson MD Oct 04, 2016 09:25
[2016-10-04 10:04] LABS: AUTOMATED NEUTROPHIL # 15.5 TH/MM3 (1.8-7.7); BASOPHIL % 0.1 % (0.0-2.0); HEMATOCRIT 35.2 % (39.0-51.0); HEMO FLAGS DIFF FINAL; LYMPH % 3.5 % (9.0-44.0); LYMPHOCYTE # 0.6 TH/MM3 (1.0-4.8); MEAN CELL VOLUME 90.1 FL (80.0-100.0); MEAN CORPUSCULAR HEMOGLOBIN 30.8 PG (27.0-34.0); MEAN CORPUSCULAR HGB CONC 34.2 % (32.0-36.0); MONO % 2.2 % (0.0-8.0); NEUT % 94.2 % (16.0-70.0); PLATELET COUNT 141 TH/MM3 (150-450); RED CELL DISTRIBUTION WIDTH 14.1 % (11.6-17.2); WHITE BLOOD COUNT 16.4 TH/MM3 (4.0-11.0)
[2016-10-04 12:29] LABS: BLOOD GAS BASE EXCESS -3.7 mmol/L (-2-2); BLOOD GAS CARBOXYHEMOGLOBIN 1.5 % (0-4); BLOOD GAS HCO3 20 mmol/L (22-26); BLOOD GAS METHEMOGLOBIN 1.2 % (0-2); BLOOD GAS O2 HGB SATURATION 96 % (90-100); BLOOD GAS OXYGEN CONTENT 17.4 Vol % (12.0-20.0); BLOOD GAS PCO2 31 mmHg (38-42); BLOOD GAS PO2 96 mmHg (61-120); BLOOD GAS TOTAL HGB 12.9 G/DL (12.0-16.0); CRITICAL VALUE NO; OXYGEN DEVICE VENTILATOR; TEMP CORR TO 98.6
[2016-10-04 12:30] LABS: DRAW SITE RT RADIAL; FIO2 40 %; NUMBER OF ARTERIAL PUNCTURES 1; STAT NO; ULNAR PULSE PRESENT; VENT SETTINGS CPAP+5/PS+10
[2016-10-04] MEDS: ENOXAPARIN SODIUM 40 MG/0.4 ML SYRINGE SQ SCH (13:06)
--- NOTE | 2016-10-04 14:26 | EKG ---
Date Performed: 10/03/2016 Time Performed: 11:20:29 PTAGE: 76 years EKG: SINUS TACHYCARDIA NONSPECIFIC ST & T-WAVE ABNORMALITY ABNORMAL RHYTHM ECG Compared to prior tracing no significant change PREVIOUS TRACING : 10/03/2016 10.35 DOCTOR: Adam Richter Interpretating Date/Time 10/04/2016 14:25:03
--- NOTE | 2016-10-04 16:27 | MB ---
cc: Sara CALDERÓN DATE OF CONSULTATION: 10/04/2016. REASON FOR CONSULTATION: HISTORY OF PRESENT ILLNESS: Mr. Clay is a 76-year-old white male with a known history of COPD; in fact, he was hospitalized here in 2004 with pneumonia and at that time had an FEV-1 of 43%. He presented yesterday with acute onset of dyspnea, shaking chills and presented in respiratory failure. He was intubated and stabilized. His initial labs included a lactic acid of 13. Initial blood gases on the ventilator 60%: His pO2 was 183 with a pH 7.29, a pCO2 of 31, and bicarb was 14. Cultures are still pending but his urine does have a gram-negative toro. Preliminary blood cultures were negative. His sputum culture is pending. The patient was extubated this morning. He is awake, alert, comfortable on nasal oxygen with sats of 95% and says that he feels fine. This all came on very suddenly. He said he had had no preceding cough or congestion. No vomiting. No diarrhea. He just became quite short of breath and had a shaking chill. On his CTA yesterday on presentation, there is no evidence of thromboembolism but he does have "severe emphysema with dependent atelectasis". I suppose that could be pneumonia as well. Since the 2004 admission, the patient has had no follow up with his lungs. He does not smoke, has not smoked in 30 years but had had no significant problem related to his COPD even though he had no treatment. PAST MEDICAL HISTORY: His only significant prior history is hypertension. PAST SURGICAL HISTORY: No significant prior surgeries. SOCIAL HISTORY: He was a heavy smoker of three to four packs per day for probably 20 or 30 years but quit 30 years ago. Does not drink alcohol. Lives with his male roommate. ALLERGIES: None known. MEDICATIONS: Reviewed in the electronic medical record. PHYSICAL EXAMINATION: GENERAL: Very alert, oriented and in no distress. VITAL SIGNS: Afebrile, blood pressure 130/70, pulse is 77, respirations are 14-16 and his sat is 95% on 4 liters. HEAD, EYES, EARS, NOSE, THROAT: Sclerae anicteric. Mucous membranes are moist. NECK: Neck veins are flat. CHEST: Chest is diminished but clear. No wheezes or rales. No congestion. HEART: Regular rhythm. No harsh murmur. ABDOMEN: Abdomen is soft. EXTREMITIES: No edema. No calf tenderness. No cyanosis or clubbing. DISCUSSION: Mr. Barrett presents with what I suspect would be sepsis, possibly a urinary tract infection, possibly pneumonia that came on very suddenly and with the underlying emphysema, his lungs failed quickly. However, he has recovered rather dramatically. We will continue the current therapy, do a simple spirometry on him tomorrow to see what the extent of his COPD is. Will continue the broad-spectrum antibiotics at this point, nebulized aerosol treatments and methylprednisolone. Will reevaluate that tomorrow. Further diagnostic and/or therapeutic intervention will depend on his ongoing clinical course and response to therapy. R. MD LISBETH Guido/AMRY /2:32 PM /4:21 PM
[2016-10-04] MEDS: SODIUM CHLORIDE 0.9% FLUSH 5 ML FLUSH IVF PRN (20:46)
[2016-10-05] VITALS (21 sets, daily range): BP systolic 121–155; BP diastolic 63–80; PULSE 70–96; RESP 12–20; TEMP 97.4–98.2; O2SAT 91–96
[2016-10-05] MEDS: INSULIN NovoLIN REGULAR SUPPLEMENTAL SCALE SQ SCH ×5 (00:45→23:43)
[2016-10-05] MEDS: PIPERACIL-TAZO 3.375 GM PREMIX 50 ML IV SCH ×4 (00:47→20:43)
[2016-10-05] MEDS: CHLORHEXIDINE GLUCONATE 2 % 1 PACK (2 CLOTHS) TOP SCH (00:48)
[2016-10-05] MEDS: RESP: ALBUTEROL 2.5 MG/IPRATROPIUM 0.5 MG NEB (SCH) INH ×4 (03:22→20:39)
[2016-10-05] MEDS: SODIUM CHLOR 0.9% 1000 ML INJ 1,000 ML IV SCH ×2 (05:37→17:55)
[2016-10-05] MEDS: methylPREDNISolone SOD SUCC 40 MG/1 ML VIAL IV PUSH SCH ×3 (05:38→20:44)
[2016-10-05 06:41] LABS: AUTOMATED NEUTROPHIL # 12.7 TH/MM3 (1.8-7.7); BASOPHIL % 0.1 % (0.0-2.0); HEMATOCRIT 36.4 % (39.0-51.0); HEMO FLAGS DIFF FINAL; LYMPH % 3.4 % (9.0-44.0); LYMPHOCYTE # 0.5 TH/MM3 (1.0-4.8); MEAN CELL VOLUME 88.3 FL (80.0-100.0); MEAN CORPUSCULAR HEMOGLOBIN 31.6 PG (27.0-34.0); MEAN CORPUSCULAR HGB CONC 35.7 % (32.0-36.0); MONO % 4.1 % (0.0-8.0); NEUT % 92.4 % (16.0-70.0); PLATELET COUNT 138 TH/MM3 (150-450); RED BLOOD COUNT 4.12 MIL/MM3 (4.50-5.90); RED CELL DISTRIBUTION WIDTH 13.9 % (11.6-17.2); WHITE BLOOD COUNT 13.7 TH/MM3 (4.0-11.0)
[2016-10-05 07:02] LABS: BICARBONATE 22.6 MEQ/L (21.0-32.0); MAGNESIUM 2.8 MG/DL (1.5-2.5); POTASSIUM 3.9 MEQ/L (3.5-5.1)
[2016-10-05] MEDS: PANTOPRAZOLE SODIUM 40 MG VIAL IV SCH (08:34)
[2016-10-05] MEDS: DILTIAZEM HCL 60 MG TAB PO SCH ×4 (08:34→20:44)
--- NOTE | 2016-10-05 08:39 | HHI.PR ---
Subjective Remarks resting comfortably with no distress. sob has much improved. no fever. has occasional dry cough. d/w the RN. Objective Vitals Vital Signs Date Time Temp Pulse Resp B/P Pulse Ox O2 Delivery O2 Flow Rate FiO2 10/05/16 08:09 95 Nasal Cannula 3.00 10/05/16 06:00 80 10/05/16 04:00 98.0 71 12 133/63 91 10/05/16 04:00 71 10/05/16 02:00 73 10/05/16 00:00 76 10/05/16 00:00 98.2 76 15 121/67 93 10/04/16 22:00 72 10/04/16 20:44 95 Nasal Cannula 4.00 10/04/16 20:00 73 10/04/16 20:00 97.9 73 13 133/68 96 10/04/16 18:00 82 10/04/16 16:00 98.3 72 8 125/64 96 10/04/16 16:00 72 10/04/16 14:00 73 10/04/16 12:48 95 Nasal Cannula 4 36 10/04/16 12:00 77 10/04/16 12:00 98.7 77 13 131/69 97 10/04/16 10:00 71 I/O 10/04/16 10/04/16 10/04/16 10/05/16 10/05/16 10/05/16 07:00 15:00 23:00 07:00 15:00 23:00 Intake Total 652 ml 710 ml 644 ml 617 ml Output Total 225 ml 300 ml 1150 ml 1050 ml Balance 427 ml 410 ml -506 ml -433 ml Intake Oral 0 ml 70 ml 90 ml IV Total 652 ml 710 ml 574 ml 527 ml Output Urine Total 225 ml 300 ml 1150 ml 1050 ml Stool Total 0 ml # Bowel Movements 0 0 0 0 Result Diagram: 10/05/16 0602 10/05/16 0602 Imaging Last Impressions Chest X-Ray 10/03/16 1103 Signed Impressions: Service Date/Time: Monday, October 03, 2016 11:15 - CONCLUSION: 1. Endotracheal tube tip measures approximately 9.2 cm from the zheng. 2. The lung bases are not fully visualized but there is questionable atelectasis versus consolidation. Sriram Alex MD CT Angiography 10/03/16 0000 Signed Impressions: Service Date/Time: Monday, October 03, 2016 13:18 - CONCLUSION: 1. No PE is identified. 2. Severe emphysema with dependent atelectasis bilaterally. 3. There is a single mildly enlarged lymph node in the right infrahilar region measuring 16 mm. Sriram Alex MD Abdomen/Pelvis CT 10/03/16 0000 Signed Impressions: Service Date/Time: Monday, October 03, 2016 13:18 - CONCLUSION: 1. No acute finding is identified within the abdomen or pelvis. 2. Nonacute findings include cholelithiasis, bilateral renal cysts, and severe atherosclerotic disease. Sriram Alex MD Objective Remarks GENERAL: This is a well-nourished, well-developed patient, in no apparent distress. CARDIOVASCULAR: Regular rate and regular rhythm without murmurs, gallops, or rubs. RESPIRATORY: Clear to auscultation. Breath sounds equal bilaterally. No wheezes , rales, or rhonchi. GASTROINTESTINAL: Abdomen soft, non-tender, nondistended. Normal, active bowel sounds MUSCULOSKELETAL: Extremities without clubbing, cyanosis, or edema. NEURO: Alert & Oriented x4 to person, place, time, situation. Moves all ext x4 Procedures endotracheal intubation. Medications and IVs Current Medications Lorazepam (Ativan Inj) 1 mg ONCE ONCE IV PUSH Last administered on 10/03/16 10 :34; Start 10/03/16 at 10:30; Stop 10/03/16 at 10:31; Status DC Lorazepam (Ativan Inj) 2 mg STK-MED ONCE .ROUTE ; Start 10/03/16 at 10:24; Stop 10/03/16 at 10:25; Status DC Methylprednisolone Sodium Succinate (SoluMEDROL INJ) 125 mg ONCE ONCE IVP Last administered on 10/03/16 10:34; Start 10/03/16 at 10:30; Stop 10/03/16 at 10: 31; Status DC Albuterol/ Ipratropium 1 ampule 1 ampule Q15M INH Last administered on 11:00; Start 10/03/16 at 10:30; Stop 10/03/16 at 11:01; Status DC Magnesium Sulfate/ Dextrose (Magnesium Sulfate 1 Gm Premix) 100 ml @ 300 mls/ hr Q20M IV Last administered on 10/03/16 10:57; Start 10/03/16 at 10:30; Stop at 11:09; Status DC Albuterol/ Ipratropium (Duoneb Neb) 3 ampule STK-MED ONCE .ROUTE ; Start at 10:27; Stop 10/03/16 at 10:28; Status DC Lorazepam 1 mg 1 mg ONCE ONCE IV PUSH Last administered on 10/03/16 10:34; Start 10/03/16 at 10:30; Stop 10/03/16 at 10:31; Status DC Propofol (Diprivan 1000 Mg/100ml Inj) 100 ml @ As Directed STK-MED ONCE .ROUTE ; Start 10/03/16 at 10:42; Stop 10/03/16 at 10:43; Status DC Etomidate (Amidate Inj) 20 mg STK-MED ONCE .ROUTE ; Start 10/03/16 at 10:42; Stop 10/03/16 at 10:43; Status DC Succinylcholine Chloride (Quelicin Inj) 200 mg STK-MED ONCE .ROUTE ; Start at 10:42; Stop 10/03/16 at 10:43; Status DC Etomidate (Amidate Inj) 20 mg ONCE ONCE IVP Last administered on 10/03/16 11: 09; Start 10/03/16 at 11:15; Stop 10/03/16 at 11:16; Status DC Succinylcholine Chloride (Quelicin Inj) 100 mg ONCE ONCE IVP Last administered on 10/03/16 11:09; Start 10/03/16 at 11:15; Stop 10/03/16 at 11:16; Status DC IV Flush 2 ml 2 ml UNSCH PRN IVF FLUSH AFTER USING IV ACCESS Last administered on 10/04/16 20:46; Start 10/03/16 at 11:15 Propofol 100 ml @ 0 mls/hr TITRATE IV Last administered on 10/04/16 08:35; Start 10/03/16 at 11:15 Sodium Chloride 1,000 ml @ 2,000 mls/hr Q30M ONCE IV Last administered on 11:10; Start 10/03/16 at 11:15; Stop 10/03/16 at 11:44; Status DC Sodium Chloride 1,000 ml @ 2,000 mls/hr Q30M ONCE IV Last administered on 11:10; Start 10/03/16 at 11:15; Stop 10/03/16 at 11:44; Status DC Vancomycin HCl 1000 mg/Sodium Chloride 250 ml @ 250 mls/hr ONCE ONCE IV Last administered on 10/03/16 12:50; Start 10/03/16 at 12:00; Stop 10/03/16 at 12:59; Status DC Cefepime HCl/ Sodium Chloride (Maxipime Inj/NS Inj) 100 ml @ 200 mls/hr ONCE ONCE IV Last administered on 10/03/16 14:23; Start 10/03/16 at 12:00; Stop at 12:29; Status DC Pantoprazole Sodium (Protonix Inj) 40 mg DAILY IV Last administered on 08:03; Start 10/03/16 at 12:45 Albuterol/ Ipratropium (Duoneb Neb) 1 ampule Q4HR NEB INH Last administered on 10/04/16 08:25; Start 10/03/16 at 16:00; Stop 10/04/16 at 14:34; Status DC Albuterol Sulfate (Albuterol Neb) 2.5 mg Q2HR NEB PRN INH SOB/WHEEZING; Start 10/03/16 at 12:45 Enoxaparin Sodium (Lovenox Inj) 40 mg Q24H SQ Last administered on 10/04/16 13: 06; Start 10/03/16 at 12:45 Miscellaneous Information 1 [id number] ; Start 10/03/16 at 12:45 Chlorhexidine Gluconate (Chlorhexidine 2% Cloth) 3 pack Taper DAILY@04 TOP Last administered on 10/05/16 00:48; Start 10/04/16 at 04:00; Stop 09/30/17 at 03: 59 Chlorhexidine Gluconate 3 pack 3 pack UNSCH PRN TOP HYGIENIC CARE; Start at 12:45 Sodium Chloride (NS 1000 ml Inj) 1,000 ml @ 75 mls/hr [id number] IV Last administered on 10/05/16 05:37; Start 10/03/16 at 12:45 Dextrose (D50w (Vial) Inj) 25 ml UNSCH PRN IV PUSH HYPOGLYCEMIA-SEE COMMENTS; Start 10/03/16 at 12:45 Glucagon (Glucagon Inj) 1 mg UNSCH PRN OTHER HYPOGLYCEMIA-SEE COMMENTS; Start 10/03/16 at 12:45 Insulin Human Regular 1 1 Q6H SQ Last administered on 10/05/16 06:14; Start 10/03/16 at 12:45 Piperacillin Sod/ Tazobactam Sod (Zosyn 3.375 Gm Premix) 50 ml @ 100 mls/hr Q6H IV Last administered on 10/05/16 00:47; Start 10/03/16 at 14:00 Methylprednisolone Sodium Succinate (SoluMEDROL INJ) 40 mg Q8HR IV PUSH Last administered on 10/05/16 05:38; Start 10/03/16 at 14:00 Diltiazem HCl (Cardizem) 60 mg QID PO Last administered on 10/04/16 20:45; Start 10/03/16 at 13:00 Iohexol (Omnipaque 350 Inj) 75 ml STK-MED ONCE IV Last administered on 13:35; Start 10/03/16 at 13:35; Stop 10/03/16 at 13:36; Status DC Albuterol/ Ipratropium (Duoneb Neb) 1 ampule Q6HR NEB INH Last administered on 10/05/16 08:08; Start 10/04/16 at 16:00 A/P Assessment and Plan A/P 1. Acute hypoxemic respiratory failure/ COPD exacerbation- improved will titrate down the oxygen to keep O2 sat > 90%- continue IV steroids- continue antibiotic and neb treatment walk test before discharge. pulmonary consulted. 2. Lactic acid acidemia..resolved 3. Urinary tract infection; continue Abx- follow the UC. 4. Hypertension; continue cardizem; will monitor the BP and adjust the regimen as needed. 5. Mild acute kidney injury; improved. 7. Hyperglycemia secondary to a critical illness; continue accu-check with SSI 8. hypophosphatemia; will replace DVT prophylaxis with Lovenox. transfer to floor. Discharge Planning possible dc home within the next one-two days if stable. Mariana Mensah MD Oct 05, 2016 08:39
[2016-10-05] MEDS: POTASSIUM PHOSPHATE/SODIUM PHOSPHATE 250 MG TAB PO SCH ×3 (09:49→23:43)
[2016-10-05] MEDS: ACETAMINOPHEN 325 MG TAB PO PRN ×2 (10:23→21:18)
[2016-10-05] MEDS: ENOXAPARIN SODIUM 40 MG/0.4 ML SYRINGE SQ SCH (12:45)
[2016-10-06] VITALS (21 sets, daily range): BP systolic 135–166; BP diastolic 70–90; PULSE 53–89; RESP 16–20; TEMP 97.5–98.7; O2SAT 92–95
[2016-10-06] MEDS: PIPERACIL-TAZO 3.375 GM PREMIX 50 ML IV SCH (02:15)
[2016-10-06] MEDS: CHLORHEXIDINE GLUCONATE 2 % 1 PACK (2 CLOTHS) TOP SCH (04:00)
[2016-10-06] MEDS: methylPREDNISolone SOD SUCC 40 MG/1 ML VIAL IV PUSH SCH (05:41)
[2016-10-06] MEDS: INSULIN NovoLIN REGULAR SUPPLEMENTAL SCALE SQ SCH ×2 (05:44→12:45)
[2016-10-06] MEDS: ACETAMINOPHEN 325 MG TAB PO PRN (07:04)
[2016-10-06] MEDS: RESP: ALBUTEROL 2.5 MG/IPRATROPIUM 0.5 MG NEB (SCH) INH ×2 (07:22→12:12)
[2016-10-06] MEDS: SODIUM CHLORIDE 0.9% FLUSH 5 ML FLUSH IVF PRN (08:39)
[2016-10-06] MEDS: POTASSIUM PHOSPHATE/SODIUM PHOSPHATE 250 MG TAB PO SCH ×2 (08:40→17:41)
[2016-10-06] MEDS: CIPROFLOXACIN 500 MG TAB PO SCH ×2 (08:40→08:45)
[2016-10-06] MEDS: DILTIAZEM HCL 60 MG TAB PO SCH ×3 (08:40→17:42)
--- NOTE | 2016-10-06 08:50 | HHI.PR ---
Subjective Remarks resting comfortably with no distress. no sob. no fever. denies pain. d/w the RN and no acute issues over night. Objective Vitals Vital Signs Date Time Temp Pulse Resp B/P Pulse Ox O2 Delivery O2 Flow Rate FiO2 10/06/16 08:00 69 10/06/16 07:22 92 Nasal Cannula 1.00 10/06/16 07:00 98.7 73 20 154/79 93 10/06/16 07:00 58 10/06/16 06:00 62 10/06/16 05:00 62 10/06/16 04:00 69 10/06/16 04:00 97.8 62 20 140/77 95 10/06/16 03:00 61 10/06/16 02:00 69 10/06/16 01:00 67 10/06/16 00:00 70 10/06/16 00:00 97.9 70 20 142/72 95 10/05/16 23:00 70 10/05/16 22:00 78 10/05/16 21:00 82 10/05/16 20:00 83 10/05/16 19:07 95 Nasal Cannula 1.00 10/05/16 19:00 97.4 76 20 144/74 94 10/05/16 19:00 71 10/05/16 18:00 82 10/05/16 17:00 77 10/05/16 16:00 71 10/05/16 15:00 73 10/05/16 15:00 97.9 83 20 155/80 96 10/05/16 13:17 97.8 84 16 150/74 95 10/05/16 13:00 83 10/05/16 11:30 16 10/05/16 11:04 72 10/05/16 10:00 80 10/05/16 09:00 96 I/O 10/05/16 10/05/16 10/05/16 10/06/16 10/06/16 10/06/16 07:00 15:00 23:00 07:00 15:00 23:00 Intake Total 617 ml 1868 ml 964 ml Output Total 1050 ml 700 ml 1050 ml Balance -433 ml -700 ml 1868 ml -86 ml Intake Oral 90 ml 960 ml 720 ml IV Total 527 ml 908 ml 244 ml Output Urine Total 1050 ml 700 ml 1050 ml # Bowel Movements 0 0 Result Diagram: 10/05/16 0602 10/05/16 0602 Imaging Last Impressions Chest X-Ray 10/03/16 1103 Signed Impressions: Service Date/Time: Monday, October 03, 2016 11:15 - CONCLUSION: 1. Endotracheal tube tip measures approximately 9.2 cm from the zheng. 2. The lung bases are not fully visualized but there is questionable atelectasis versus consolidation. Sriram Alex MD CT Angiography 10/03/16 0000 Signed Impressions: Service Date/Time: Monday, October 03, 2016 13:18 - CONCLUSION: 1. No PE is identified. 2. Severe emphysema with dependent atelectasis bilaterally. 3. There is a single mildly enlarged lymph node in the right infrahilar region measuring 16 mm. Sriram Alex MD Abdomen/Pelvis CT 10/03/16 0000 Signed Impressions: Service Date/Time: Monday, October 03, 2016 13:18 - CONCLUSION: 1. No acute finding is identified within the abdomen or pelvis. 2. Nonacute findings include cholelithiasis, bilateral renal cysts, and severe atherosclerotic disease. Sriram Alex MD Objective Remarks GENERAL: This is a well-nourished, well-developed patient, in no apparent distress. CARDIOVASCULAR: Regular rate and regular rhythm without murmurs, gallops, or rubs. RESPIRATORY: Clear to auscultation. Breath sounds equal bilaterally. No wheezes , rales, or rhonchi. GASTROINTESTINAL: Abdomen soft, non-tender, nondistended. Normal, active bowel sounds MUSCULOSKELETAL: Extremities without clubbing, cyanosis, or edema. NEURO: Alert & Oriented x4 to person, place, time, situation. Moves all ext x4 Procedures endotracheal intubation. Medications and IVs Current Medications Lorazepam (Ativan Inj) 1 mg ONCE ONCE IV PUSH Last administered on 10/03/16 10 :34; Start 10/03/16 at 10:30; Stop 10/03/16 at 10:31; Status DC Lorazepam (Ativan Inj) 2 mg STK-MED ONCE .ROUTE ; Start 10/03/16 at 10:24; Stop 10/03/16 at 10:25; Status DC Methylprednisolone Sodium Succinate (SoluMEDROL INJ) 125 mg ONCE ONCE IVP Last administered on 10/03/16 10:34; Start 10/03/16 at 10:30; Stop 10/03/16 at 10: 31; Status DC Albuterol/ Ipratropium 1 ampule 1 ampule Q15M INH Last administered on 11:00; Start 10/03/16 at 10:30; Stop 10/03/16 at 11:01; Status DC Magnesium Sulfate/ Dextrose (Magnesium Sulfate 1 Gm Premix) 100 ml @ 300 mls/ hr Q20M IV Last administered on 10/03/16 10:57; Start 10/03/16 at 10:30; Stop at 11:09; Status DC Albuterol/ Ipratropium (Duoneb Neb) 3 ampule STK-MED ONCE .ROUTE ; Start at 10:27; Stop 10/03/16 at 10:28; Status DC Lorazepam 1 mg 1 mg ONCE ONCE IV PUSH Last administered on 10/03/16 10:34; Start 10/03/16 at 10:30; Stop 10/03/16 at 10:31; Status DC Propofol (Diprivan 1000 Mg/100ml Inj) 100 ml @ As Directed STK-MED ONCE .ROUTE ; Start 10/03/16 at 10:42; Stop 10/03/16 at 10:43; Status DC Etomidate (Amidate Inj) 20 mg STK-MED ONCE .ROUTE ; Start 10/03/16 at 10:42; Stop 10/03/16 at 10:43; Status DC Succinylcholine Chloride (Quelicin Inj) 200 mg STK-MED ONCE .ROUTE ; Start at 10:42; Stop 10/03/16 at 10:43; Status DC Etomidate (Amidate Inj) 20 mg ONCE ONCE IVP Last administered on 10/03/16 11: 09; Start 10/03/16 at 11:15; Stop 10/03/16 at 11:16; Status DC Succinylcholine Chloride (Quelicin Inj) 100 mg ONCE ONCE IVP Last administered on 10/03/16 11:09; Start 10/03/16 at 11:15; Stop 10/03/16 at 11:16; Status DC IV Flush 2 ml 2 ml UNSCH PRN IVF FLUSH AFTER USING IV ACCESS Last administered on 10/04/16 20:46; Start 10/03/16 at 11:15 Propofol 100 ml @ 0 mls/hr TITRATE IV Last administered on 10/04/16 08:35; Start 10/03/16 at 11:15; Stop 10/05/16 at 18:03; Status DC Sodium Chloride 1,000 ml @ 2,000 mls/hr Q30M ONCE IV Last administered on 11:10; Start 10/03/16 at 11:15; Stop 10/03/16 at 11:44; Status DC Sodium Chloride 1,000 ml @ 2,000 mls/hr Q30M ONCE IV Last administered on 11:10; Start 10/03/16 at 11:15; Stop 10/03/16 at 11:44; Status DC Vancomycin HCl 1000 mg/Sodium Chloride 250 ml @ 250 mls/hr ONCE ONCE IV Last administered on 10/03/16 12:50; Start 10/03/16 at 12:00; Stop 10/03/16 at 12:59; Status DC Cefepime HCl/ Sodium Chloride (Maxipime Inj/NS Inj) 100 ml @ 200 mls/hr ONCE ONCE IV Last administered on 10/03/16 14:23; Start 10/03/16 at 12:00; Stop at 12:29; Status DC Pantoprazole Sodium (Protonix Inj) 40 mg DAILY IV Last administered on 08:34; Start 10/03/16 at 12:45; Stop 10/05/16 at 08:40; Status DC Albuterol/ Ipratropium (Duoneb Neb) 1 ampule Q4HR NEB INH Last administered on 10/04/16 08:25; Start 10/03/16 at 16:00; Stop 10/04/16 at 14:34; Status DC Albuterol Sulfate (Albuterol Neb) 2.5 mg Q2HR NEB PRN INH SOB/WHEEZING; Start 10/03/16 at 12:45 Enoxaparin Sodium (Lovenox Inj) 40 mg Q24H SQ Last administered on 10/05/16 12: 45; Start 10/03/16 at 12:45 Miscellaneous Information 1 [id number] XX ; Start 10/03/16 at 12:45 Chlorhexidine Gluconate (Chlorhexidine 2% Cloth) 3 pack Taper DAILY@04 TOP Last administered on 10/05/16 00:48; Start 10/04/16 at 04:00; Stop 09/30/17 at 03: 59 Chlorhexidine Gluconate 3 pack 3 pack UNSCH PRN TOP HYGIENIC CARE; Start at 12:45 Sodium Chloride (NS 1000 ml Inj) 1,000 ml @ 75 mls/hr [id number] IV Last administered on 10/05/16 17:55; Start 10/03/16 at 12:45; Stop 10/05/16 at 18:03; Status DC Dextrose (D50w (Vial) Inj) 25 ml UNSCH PRN IV PUSH HYPOGLYCEMIA-SEE COMMENTS; Start 10/03/16 at 12:45 Glucagon (Glucagon Inj) 1 mg UNSCH PRN OTHER HYPOGLYCEMIA-SEE COMMENTS; Start 10/03/16 at 12:45 Insulin Human Regular 1 1 Q6H SQ Last administered on 10/05/16 23:43; Start 10/03/16 at 12:45 Piperacillin Sod/ Tazobactam Sod (Zosyn 3.375 Gm Premix) 50 ml @ 100 mls/hr Q6H IV Last administered on 10/06/16 02:15; Start 10/03/16 at 14:00; Stop at 06:00; Status DC Methylprednisolone Sodium Succinate (SoluMEDROL INJ) 40 mg Q8HR IV PUSH Last administered on 10/06/16 05:41; Start 10/03/16 at 14:00; Stop 10/06/16 at 06:00; Status DC Diltiazem HCl (Cardizem) 60 mg QID PO Last administered on 10/05/16 20:44; Start 10/03/16 at 13:00 Iohexol (Omnipaque 350 Inj) 75 ml STK-MED ONCE IV Last administered on 13:35; Start 10/03/16 at 13:35; Stop 10/03/16 at 13:36; Status DC Albuterol/ Ipratropium (Duoneb Neb) 1 ampule Q6HR NEB INH Last administered on 10/05/16 16:27; Start 10/04/16 at 16:00; Stop 10/05/16 at 18:04; Status DC Pantoprazole Sodium (Protonix) 40 mg DAILY PO ; Start 10/06/16 at 09:00 Potassium Phos/ Sodium Phos (K-Phos Neutral) 250 mg Q8H PO Last administered on 10/05/16 23:43; Start 10/05/16 at 09:00 Acetaminophen (Tylenol) 650 mg Q4H PRN PO HEADACHE Last administered on 07:04; Start 10/05/16 at 10:15 Albuterol/ Ipratropium (Duoneb Neb) 1 ampule TID NEB INH Last administered on 10/06/16 07:22; Start 10/05/16 at 20:00 Prednisone (Deltasone) 30 mg DAILY PO ; Start 10/06/16 at 09:00 Ciprofloxacin (Cipro) 500 mg Q12HR PO ; Start 10/06/16 at 07:00 A/P Assessment and Plan A/P 1. Acute hypoxemic respiratory failure/ COPD exacerbation- improved continue prednisone- continue antibiotic and neb treatment pulmonary consult appreciated. 2. Lactic acid acidemia..resolved 3. Urinary tract infection; continue Abx- UC with Klebsiella. 4. Hypertension; continue cardizem; will monitor the BP and adjust the regimen as needed. 5. Mild acute kidney injury; improved. 7. Hyperglycemia secondary to a critical illness; continue accu-check with SSI 8. hypophosphatemia; improved. DVT prophylaxis with Lovenox. Discharge Planning dc home later today when cleared and ok by pulmonary. see med list. f/u; pcp and pulmonary. d/w the patient and Mariana Crocker MD Oct 06, 2016 08:50
[2016-10-06] MEDS ORDERED: CIPR-9 PO (08:52)
[2016-10-06] MEDS ORDERED: PRED5TAB PO (08:52)
[2016-10-06] MEDS ORDERED: VENTAER INH (08:53)
--- NOTE | 2016-10-06 08:53 | HHI.DCPOC ---
Discharge Care Plan Diagnosis: (1) Acute respiratory failure with hypoxia Your Health Problems Are: Shortness of Breath Goals to Promote Your Health * To prevent worsening of your condition and complications * To maintain your health at the optimal level Directions to Meet Your Goals Take your medications as prescribed Follow your dietary instruction Follow activity as directed Keep your appointments as scheduled Take your immunizations and boosters as scheduled If your symptoms worsen call your PCP, if no PCP go to Urgent Care Center or Emergency Room Smoking is Dangerous to Your Health. Avoid second hand smoke Call the 24-hour hour crisis hotline for domestic abuse at Mariana Mensah MD Oct 06, 2016 08:53
--- NOTE | 2016-10-06 08:54 | HHI.DS ---
Discharge Summary Admission Date Oct 03, 2016 at 12:14 Discharge Date: Oct 06, 2016 Admitting Diagnosis respiratory failure (1) Acute respiratory failure with hypoxia ICD Code: J96.01 Diagnosis: Principal Procedures endotracheal intubation. Brief History - From Admission The patient is a 76-year-old male with past medical history of chronic obstructive pulmonary lung disease and hypertension who was brought into the [facility] Emergency Department by his roommate for acute onset of shortness of breath that started 30 minutes prior to arrival. CBC/BMP: 10/05/16 0602 10/05/16 0602 Significant Findings Laboratory Tests Test 10/03/16 10/03/16 10/03/16 10/03/16 10:25 10:29 11:18 12:10 Activated Partial 23.6 SEC Thromboplast Time (24.3-30.1) Carbon Dioxide Level 18.7 MEQ/L (21.0-32.0) Anion Gap 17 MEQ/L (5-15) Creatinine 1.32 MG/DL (0.60-1.30) Estimat Glomerular Filtration 53 ML/MIN (>89) Rate Random Glucose 155 MG/DL (74-106) Lactic Acid Level 13.5 mmol/L 2.7 mmol/L (0.4-2.0) (0.4-2.0) Troponin I LESS THAN 0.02 NG/ML (0.02-0.05) Blood Gas HCO3 14 mmol/L 19 mmol/L (22-26) (22-26) Blood Gas Base Excess -11.1 mmol/L -6.0 mmol/L (-2-2) (-2-2) Arterial Blood pH 7.29 7.34 (7.380-7.420) (7.380-7.420) Arterial Blood Partial 31 mmHg (38-42) 36 mmHg (38-42) Pressure CO2 Arterial Blood Partial 183 mmHG 344 mmHG Pressure O2 (61-120) (61-120) Arterial Blood Oxygen Content 22.4 Vol % (12.0-20.0) Arterial Blood Methemoglobin 2.2 % (0-2) 2.3 % (0-2) Blood Gas Hemoglobin 16.6 G/DL (12.0-16.0) Test 10/03/16 10/04/16 10/04/16 10/04/16 12:45 05:45 09:54 12:16 Urine Turbidity HAZY (CLEAR) Urine Nitrite POS (NEG) Urine Leukocyte Esterase MOD (NEG) Urine WBC 11 /hpf (0-5) Urine Bacteria OCC /hpf (NONE) Urine Mucus FEW /lpf (OCC) White Blood Count 17.0 TH/MM3 16.4 TH/MM3 (4.0-11.0) (4.0-11.0) Red Blood Count 4.05 MIL/MM3 3.90 MIL/MM3 (4.50-5.90) (4.50-5.90) Hemoglobin 12.8 GM/DL 12.0 GM/DL (13.0-17.0) (13.0-17.0) Hematocrit 36.3 % 35.2 % (39.0-51.0) (39.0-51.0) Platelet Count 148 TH/MM3 141 TH/MM3 (150-450) (150-450) Neutrophils (%) (Auto) 94.5 % 94.2 % (16.0-70.0) (16.0-70.0) Lymphocytes (%) (Auto) 2.9 % 3.5 % (9.0-44.0) (9.0-44.0) Neutrophils # (Auto) 16.1 TH/MM3 15.5 TH/MM3 (1.8-7.7) (1.8-7.7) Lymphocytes # (Auto) 0.5 TH/MM3 0.6 TH/MM3 (1.0-4.8) (1.0-4.8) Chloride Level 111 MEQ/L (98-107) Blood Urea Nitrogen 23 MG/DL (7-18) Estimat Glomerular Filtration 59 ML/MIN (>89) Rate Random Glucose 169 MG/DL (74-106) Lactic Acid Level 2.6 mmol/L (0.4-2.0) Calcium Level 7.6 MG/DL (8.5-10.1) Magnesium Level 2.6 MG/DL (1.5-2.5) Blood Gas HCO3 20 mmol/L (22-26) Blood Gas Base Excess -3.7 mmol/L (-2-2) Arterial Blood Partial 31 mmHg (38-42) Pressure CO2 Test 10/05/16 10/06/16 06:02 05:53 White Blood Count 13.7 TH/MM3 (4.0-11.0) Red Blood Count 4.12 MIL/MM3 (4.50-5.90) Hematocrit 36.4 % (39.0-51.0) Platelet Count 138 TH/MM3 (150-450) Neutrophils (%) (Auto) 92.4 % (16.0-70.0) Lymphocytes (%) (Auto) 3.4 % (9.0-44.0) Neutrophils # (Auto) 12.7 TH/MM3 (1.8-7.7) Lymphocytes # (Auto) 0.5 TH/MM3 (1.0-4.8) Chloride Level 111 MEQ/L (98-107) Blood Urea Nitrogen 23 MG/DL (7-18) Estimat Glomerular Filtration 79 ML/MIN (>89) Rate Random Glucose 161 MG/DL (74-106) Calcium Level 8.2 MG/DL (8.5-10.1) Phosphorus Level 1.6 MG/DL 2.1 MG/DL (2.5-4.9) (2.5-4.9) Magnesium Level 2.8 MG/DL (1.5-2.5) Imaging Last Impressions Chest X-Ray 10/03/16 1103 Signed Impressions: Service Date/Time: Monday, October 03, 2016 11:15 - CONCLUSION: 1. Endotracheal tube tip measures approximately 9.2 cm from the zheng. 2. The lung bases are not fully visualized but there is questionable atelectasis versus consolidation. Sriram Alex MD CT Angiography 10/03/16 0000 Signed Impressions: Service Date/Time: Monday, October 03, 2016 13:18 - CONCLUSION: 1. No PE is identified. 2. Severe emphysema with dependent atelectasis bilaterally. 3. There is a single mildly enlarged lymph node in the right infrahilar region measuring 16 mm. Sriram Alex MD Abdomen/Pelvis CT 10/03/16 0000 Signed Impressions: Service Date/Time: Monday, October 03, 2016 13:18 - CONCLUSION: 1. No acute finding is identified within the abdomen or pelvis. 2. Nonacute findings include cholelithiasis, bilateral renal cysts, and severe atherosclerotic disease. Sriram Alex MD PE at Discharge GENERAL: This is a well-nourished, well-developed patient, in no apparent distress. CARDIOVASCULAR: Regular rate and regular rhythm without murmurs, gallops, or rubs. RESPIRATORY: Clear to auscultation. Breath sounds equal bilaterally. No wheezes , rales, or rhonchi. GASTROINTESTINAL: Abdomen soft, non-tender, nondistended. Normal, active bowel sounds MUSCULOSKELETAL: Extremities without clubbing, cyanosis, or edema. NEURO: Alert & Oriented x4 to person, place, time, situation. Moves all ext x4 Hospital Course 1. Acute hypoxemic respiratory failure/ COPD exacerbation- improved continue prednisone- continue antibiotic and neb treatment pulmonary consult appreciated. 2. Lactic acid acidemia..resolved 3. Urinary tract infection; continue Abx- UC with Klebsiella. 4. Hypertension; continue cardizem; will monitor the BP and adjust the regimen as needed. 5. Mild acute kidney injury; improved. 7. Hyperglycemia secondary to a critical illness; continue accu-check with SSI 8. hypophosphatemia; improved. Pt Condition on Discharge: Good Discharge Disposition: Discharge Home Discharge Time: <= 30 minutes Discharge Instructions DIET: Follow Instructions for: Heart Healthy Diet Speech Therapy-Diet Recommends: Regular Activities you can perform: Regular-No Restrictions Follow up Referrals: PCP Follow-up Pulmonology New Medications: Albuterol 18 GM Inh (Ventolin Hfa 18 GM Inh) 90 Mcg/Act Aer 2 PUFF INH Q6H PRN SHORTNESS OF BREATH #1 Ref 0 INHALER Prednisone (Prednisone) 5 Mg Tab 5 MG PO DIRECTED 30 mg po daily for two days then 20 mg po daily for two days then 10 mg po daily for two days then 5 mg po daily for two days then stop. copd Days 6 Ref 0 TAB Ciprofloxacin (Cipro) 500 Mg Tab 500 MG PO Q12HR infection Days 7 Ref 0 TAB Mariana Mensah MD Oct 06, 2016 08:54
[2016-10-06] MEDS ORDERED: PANTOPRAZOLE SOD 40 MG DELAYED RELEASE TAB PO SCH (09:00)
[2016-10-06] MEDS ORDERED: predniSONE 20 MG TAB PO SCH (09:00)
[2016-10-06] MEDS ORDERED: AMLO10 PO (09:09)
[2016-10-06] MEDS ORDERED: ATEN25TA PO (09:09)
[2016-10-06] MEDS: ENOXAPARIN SODIUM 40 MG/0.4 ML SYRINGE SQ SCH (12:55)
[2016-10-06] MEDS ORDERED: UMECLIDINIUM 62.5 MCG/VILANTEROL 25 MCG INHALER INH SCH (18:30)
--- NOTE | 2016-10-14 09:06 | MD ---
cc: SETH SNOW M.D., R. STEVEN ADMISSION DATE: 10/03/2016 DISCHARGE DATE: 10/06/2016 HISTORY Mr. Clay is a 76-year-old white male with a history of COPD but has never been very seriously ill with that. Last hospitalization was in 2004, at which time he had pneumonia but he did have a spirometry at that point with an FEV-1 of 43%. He has been on no regular maintenance therapy for his emphysema and presented on October 04 in very severe respiratory distress, had to be intubated and ventilated. He had a CTA which revealed severe emphysema with some dependent atelectasis but no thromboembolic disease. He was a former smoker of 30 pack-years but again was getting along remarkably well and was on no maintenance therapy. HOSPITAL COURSE The patient was extubated within 24 hours, did remarkably well, required oxygen for about 48 hours but today he has been up, ambulating and saturations have been 95-96%. He has been on prednisone, Cipro, nebulized aerosol treatments. When I saw him here this evening he is afebrile, his heart rate is 60, has blood pressure is 160/90 and his respirations are 16 nonlabored with a sat of 95%. No adenopathy in the neck. Chest is clear now, although diminished, regular rhythm, no harsh murmur and no pitting edema. The patient states to me this evening that he really needs to go home, apparently some issues with care taking that he needs to do tomorrow. He really is quite stable. I spoke to Dr. Mensah the hospitalist, he agrees. Will send him home with Anoro along with a prednisone tapering prescription and five more days of Cipro. Cultures of the urine had revealed Klebsiella as well and it is sensitive to Cipro. I explained to Mr. Clay that he was very ill on presentation and that he must be on some type of maintenance therapy and have appropriate follow-up post discharge. He will see Dr. Snow within the next week and if he needs pulmonary follow-up I would be happy to see him if that is what he would like to do. The patient understands these instructions, also knows that if his breathing were to deteriorate he is to come right back to the hospital. R. MD LISBETH Giudo/BEATRIZ /6:34 PM /7:53 AM
--- NOTE | 2016-10-21 12:26 | RSPPFT ---
DATE OF PROCEDURE: 10/06/16 COMMENTS: VOLUMES DYNAMIC: FVC mildly reduced; FEV1 moderately reduced. FLOWS: FEV1% moderately reduced; FEF 25-75 severely reduced. IMPRESSION: Moderately severe obstructive ventilatory defect with some improvement post-bronchodilator.
== END 2016-10-06 19:02 | disposition home or self-care (01) | DRG 208 ==
LOC: NEPE 10:07 → NEDA 12:14 → HIMN 17:15 → HCIS 10-05 15:19
PROVIDERS: ADMIT Internal Medicine; ATTEND Internal Medicine
PROC: 5A1945Z Respiratory Ventilation, 24-96 Consecutive Hours (ICD-10-PCS; principal; 2016-10-03)
PROC: 0BH17EZ Insertion of Endotracheal Airway into Trachea, Via Natural or Artificial Opening (ICD-10-PCS; 2016-10-03)
PROC: 5A09357 Assistance with Respiratory Ventilation, Less than 24 Consecutive Hours, Continuous Positive Airway Pressure (ICD-10-PCS; 2016-10-03)
DX: J96.01 Acute respiratory failure with hypoxia (principal); N17.9 Acute kidney failure, unspecified; E87.2 Acidosis; J44.1 Chronic obstructive pulmonary disease with (acute) exacerbation; N39.0 Urinary tract infection, site not specified; I10 Essential (primary) hypertension; R73.9 Hyperglycemia, unspecified; E83.39 Other disorders of phosphorus metabolism; Z87.891 Personal history of nicotine dependence
CPT/HCPCS: 31500; 36600; 51702; 71010; 71275; 74177; 80048; 80053; 81001; 82805; 82948; 83605; 83690; 83735; 84100; 84484; 85025; 85610; 85730; 87040; 87070; 87077; 87086; 87186; 87205; 87641; 93005; 94002; 94003; 94060; 94150; 94640; 94664; 96361; 96365; 96375; C9113; J0330; J0692; J1650; J2060; J2543; J2920; J2930; J3370; J3475; J7030; J7050; J7512; Q9967